=== PATIENT | male | born 1950 | race Caucasian/White ===

== ENCOUNTER 2024-08-18 18:09 | Emergency (ER) | payer MEDICARE, OTHER ==
[~2024-08-18] VITALS: Ht 172.7 cm; Wt 77.1 kg
[2024-08-18 18:48] LABS: Source, Urine Clean Catch
[2024-08-18 18:56] LABS: Appearance, Urine Hazy (Clear); Bilirubin, Urine Neg (Neg); Blood, Urine 5+ (Neg); Color, Urine Yellow (P-Yellow); Glucose Qualitative, Urine Neg (Neg); Ketones, Urine Neg (Neg); Leukocyte Esterase, Urine 3+ (Neg); Nitrite, Urine Pos (Neg); Protein, Urine 2+ (Neg); Specific Gravity, Urine 1.015 (1.003-1.022); Urobilinogen, Urine NORM (Normal)
[2024-08-18 19:07] LABS: Bacteria Many /hpf; Hyaline Casts 0-2 /lpf (0-2); Squamous Epithelial Cells Rare /hpf (Few); White Blood Cells, Urine 25-50 /hpf (0-5)
[2024-08-18] MEDS ORDERED: CEPH500 PO (19:23)
== END 2024-08-18 19:20 | disposition home or self-care (01) ==
LOC: ER 18:09
PROVIDERS: Physician Assistant
DX: N39.0 Urinary tract infection, site not specified (principal)
CPT/HCPCS: 51702; 51798; 81001; 87077; 87086; 87186; 99283-25